=== PATIENT | female | born 2000 | race Hispanic/Latino ===

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

== ENCOUNTER 2022-02-06 16:14 | Emergency (ER) | payer OTHER ==
[~2022-02-06] VITALS: Ht 160 cm; Wt 56.7 kg
[2022-02-06 17:52] LABS: APPEARANCE,URINE Clear (CLEAR); BILIRUBIN,URINE Negative (NEGATIVE); COLOR,URINE Yellow (YELLOW); GLUCOSE, URINE (UA) Negative (NEGATIVE); KETONES,URINE Negative (NEGATIVE); LEUKOCYTE ESTERASE ,URINE Small (NEGATIVE); NITRATE,URINE Negative (NEGATIVE); OCCULT BLOOD,URINE Negative (NEGATIVE); PROTEIN,URINE Negative (NEGATIVE); UROBILINOGEN,URINE 0.2 mg/dL (0.2-1.0)
[2022-02-06 18:02] LABS: HCG,QUAL RESULT NEGATIVE (NEGATIVE)
[2022-02-06 18:30] LABS: BACTERIA,URINE Few /HPF (None Seen); RBC,URINE 0-1 /HPF (0-1); SQUAMOUS EPITHELIAL CELL,UR Few /HPF (0-2)
[2022-02-06] MEDS ORDERED: NAPR-1180 PO (19:26)
[2022-02-06] MEDS ORDERED: D-ME1POW16 PO (19:26)
[2022-02-06] MEDS ORDERED: CYCL10TA16 PO (19:26)
[2022-02-06 19:37] VITALS: BP 110/61
== END 2022-02-06 19:38 | disposition home or self-care (01) ==
LOC: EDH 16:14
DX: S16.1XXA Strain of muscle, fascia and tendon at neck level, initial encounter (principal); J06.9 Acute upper respiratory infection, unspecified; Z20.822 Contact with and (suspected) exposure to COVID-19; Z79.1 Long term (current) use of non-steroidal anti-inflammatories (NSAID); X58.XXXA Exposure to other specified factors, initial encounter; Y93.89 Activity, other specified; Y92.89 Other specified places as the place of occurrence of the external cause; Y99.8 Other external cause status
CPT/HCPCS: 71045; 72125; 81001; 81025; 87635; 87804 ×2; 87880; 99285; C9803

== ENCOUNTER 2025-01-23 22:57 | Emergency (ER) | payer SELFPAY ==
[~2025-01-23] VITALS: Ht 160 cm; Wt 61.7 kg
[~2025-01-23 22:57] MED LIST: CYCL10TA16 PO; D-ME1POW16 PO; NAPR-1180 PO
[2025-01-23 23:23] LABS: RAPID GROUP A STREP negative (NEGATIVE)
[2025-01-23 23:33] LABS: COVID19 (SARS ANTIGEN RAPID) PRESUMPTIVE NEGATIVE (NEGATIVE); INFLUENZA TYPE A Negative For Type A (NEGATIVE); INFLUENZA TYPE B Negative For Type B (NEGATIVE)
--- NOTE | 2025-01-23 23:36 | ERN ---
ED Note History of Present Illness Stated Complaint: FLU LIKE SYMPTOMS Chief Complaint: Flu Symptoms Time Seen by MD: 23:01 Dictation: This is a 24-year-old female who came in with flu-like symptoms generalized body aches, fatigue and nausea. All this has been going on for the past few days she also has mild spotting on her panty. No bleeding or passage of clots. Her last menstrual period was end of November. She had subjective fevers but does not have a thermometer to document. No vomitings diarrhea. Last bowel movement is today At home test is positive but she has not seen the Ob to confirm her yet. This is her 1st Temperature 98.4 pulse 106 respirations 19, blood pressure 142/87 with a pulse oximetry of 99% on room Allergies: Coded Allergies: No Known Allergies (Unverified Allergy, Unknown, 07/03/19) Home Meds Active Scripts Ondansetron (Ondansetron Odt) 4 Mg Tab.rapdis, 4 MG PO Q6HPRN PRN for nausea, #16 TAB 0 Refills Prov:GIN LR MD 01/24/25 Naproxen (Naprosyn) 500 Mg Tablet, 500 MG PO BIDPC, #60 TAB Prov:YAEL ROSADO 02/06/22 Cyclobenzaprine HCl (Flexeril) 10 Mg Tab, 10 MG PO BID, #30 TAB Prov:YAEL ROSADO 02/06/22 D-Methorphan/PE/Acetaminophen (Theraflu Ms Severe Cold Pckt) 1 Each Powd.pack, 1 EACH PO QIDP, #20 PACK Prov:YAEL ROSADO 02/06/22 Past Medical History Past Medical History: No Pertinent History Surgical History: None Family History: Negative Social History: Negative History: Not Applicable : 1 Para: 0 Aborts: 0 RN Note Reviewed/Agreed w/PFSH: Yes Review of System Dictation Constitutional: Positive for fever,chills, generalized body weakness and denies weight loss Eyes: Negative for injury, pain,redness, and discharge ENT: Negative for injury,pain or swelling Cardiovascular: Negative for chest pain, palpitations, and edema Respiratory: Negative for shortness of breath, cough, and wheezing, Abdomen/GI: Negative for abdominal pain, nausea, vomiting, diarrhea, and constipation Back: Negative for injury and pain : Negative for injury, bleeding and discharge positive unknown weeks MS/Extremity: Negative for injury and deformity Skin: Negative for rash, and discoloration Neuro: Negative for headache, weakness, numbness, tingling, and seizure Psych: Negative for suicide ideation, homicidal ideation, and hallucinations Initial Vital Sign VS Vital Signs Date Time Temp Pulse Resp B/P (MAP) Pulse Ox O2 Delivery O2 Flow Rate FiO2 01/23/25 23:00 98.4 106 19 142/87 99 Room Air 01/24/25 00:29 0 21 Physical Exam Dictation General: awake, alert, NAD Head/Face: Normocephalic, atraumatic Eyes: PERRL, EOMI, vision at baseline ENT: oral cavity clear, TMs clear, no signs of infection Neck: Trachea midline, supple, no nuchal rigidity Cardiovascular: RRR, normal S1/S2, No MRGs, no JVD Respiratory: CTAB, no respiratory distress, No rales or wheezes Abdomen: Soft, non-tender, non-distended, normal bowel sounds, no guarding or rebound. Skin: Warm, dry, normal turgor, no rash MS/Extremity: Pulses equal, no cyanosis, neurovascular intact, FROM Neuro: COAx4, GCS 15, strength 5/5, CN 2-12 intact, normal cerebellar exam, normal gait, Psych: Normal behavior, mood, and affect normal Extremities-trace edema without any palpable cords, Homans sign is negative Results (Laboratory/Radiology) Laboratory/Radiology Laboratory Tests Test 01/23/25 23:03 Influenza Type A Antigen Negative For Type A Influenza Type B Antigen Negative For Type B SARS-CoV-2 Antigen (Rapid) PRESUMPTIVE NEGATIVE Group A Streptococcus Rapid negative (NEGATIVE) Labs Reviewed?: Yes ED Course ED Course Orders Procedure Category Date Status Time Influenza Type A & B, LAB 01/23/25 Complete Rapid 23:06 Rapid (Group A Strep) LAB 01/23/25 Complete 23:06 Covid19 (Sars Antigen LAB 01/23/25 Complete Rapid) 23:06 Ondansetron Odt 4mg PHA 01/24/25 Complete Tab (Zofran 4mg Odt) 00:00 Current Medications Medications (Trade) Dose Ordered Sig/Dulce Route PRN Reason Start Time Stop Time Status Last Admin Dose Admin Ondansetron HCl (zoFRAN 4MG ODT) 4 mg ONCE ONCE SL 01/24/25 00:00 01/24/25 00:05 DC 01/24/25 00:25 Vital Signs Date Time Temp Pulse Resp B/P (MAP) Pulse Ox O2 Delivery O2 Flow Rate FiO2 01/24/25 00:29 98.2 80 18 132/65 98 Room Air* 0 21 01/23/25 23:00 98.4 106 19 142/87 99 Room Air We will perform diagnostic labs, and administer medications according to the patient's complaint. Once the results are available, will review and personally interpreted the labs to rule out any acute life-threatening emergency the trach require immediate intervention and treatment. I will then re-evaluate the patient after treatment and diagnostic exams have return to determine whether the patient requires any further testing, can safely be discharged home or need further admission to hospital for additional treatment and evaluation. 12:00 a.m. viral serology for influenza, COVID and strep pharyngitis is all negative. I explained to her that most of her symptoms may simply be related to the 1st trimester of with nausea and fatigue. Trial of Zofran and we will send a prescription for PRN use. She will follow up with Ob or return to the ER with any worsening or additional symptoms. Medical Decision Making MDM MDM: Differential diagnosis: Viral syndrome, influenza, COVID, 1st trimester symptoms of fatigue and morning sickness. Rationale: Tests considered and ordered secondary to shared decision making include: Previous outside records reviewed: Old ER visits. Risk of complication and/or morbidity or mortality of patient management: None Medications-Per medication reconciliation Need for hospitalization: Patient does not meet criteria for hospitalization. Need for emergency major/minor surgery: No There are no social concerns with this patient. Prescription drug management Prescriptions will include symptomatic care Patient's prior external medical records from other ER visits were reviewed by me as indicated. Prior testing and results from previous visits were reviewed. Prior tests were taken into account with medical decision making and resource utilization, independent historian/historians were used to obtain complete medical history. I independently interpreted the test that were performed, results were reviewed by me and considered findings on radiology if ordered. Medical management and examination interpretation discussions were had by me with other qualified healthcare professionals as indicated for the patient's care. Problem List Problem List: (1) Acute viral syndrome (2) DX & DISP Disposition: Discharge Departure Impression: Primary Impression: Viral URI with cough Additional Impression: Condition: Stable Scripts Ondansetron (Ondansetron Odt) 4 Mg Tab.rapdis 4 MG PO Q6HPRN PRN for nausea, #16 TAB 0 Refills Prov: GIN LR MD 01/24/25 Additional Instructions: Patient and the caregiver have been informed of all the diagnostic tests and the imaging conducted during the today's visit to the emergency room and has verbalized understanding of the results I have personally reviewed and interpreted all diagnostic exams performed here in the ER today as well as the vital signs documented by the nursing staff. The patient is now being discharged to home and should follow up with the primary care physician or the specialist as directed by the ER staff. Follow-up with primary care provider in 1 to 2 days. Take medications as directed here in the emergency room. Okay to continue home medications unless otherwise discussed during your visit in the emergency room today. Return to your nearest emergency room if symptoms worsen or if there is no improvement. Call 911 if you need immediate assistance. Take Tylenol or Motrin [id number] as needed and if no contraindications are present. Increase oral hydration. A wound culture or urine culture was ordered here in the emergency room department please follow-up with primary care provider and advise them to get repeat ports from our facility. If you had any Parish wrap/splints that were applied here, please do not remove them until you see your primary care or specialty. Patient must follow up with OBGYN for confirmation and care Referrals: SELF,REFERRAL (PCP) GIN LR MD Jan 23, 2025 23:36
[2025-01-24] MEDS ORDERED: ONDA-243 PO
[2025-01-24] MEDS: ondanSETRON ODT 4MG TAB SL ONE (00:25)
[2025-01-24 00:29] VITALS: BP 132/65; PULSE 80; RESP 18; TEMP 98.2; O2SAT 98
== END 2025-01-24 00:44 | disposition home or self-care (01) ==
LOC: EDH 22:57
DX: O98.519 Other viral diseases complicating pregnancy, unspecified trimester (principal); J06.9 Acute upper respiratory infection, unspecified; B97.89 Other viral agents as the cause of diseases classified elsewhere; Z3A.00 Weeks of gestation of pregnancy not specified; Z20.822 Contact with and (suspected) exposure to COVID-19; Z79.899 Other long term (current) drug therapy
CPT/HCPCS: 87426; 87804; 87880; 99283